=== PATIENT | female | born 1980 | race Asian ===

== ENCOUNTER 2023-06-30 11:34 | Emergency (ER) | payer OTHER ==
[~2023-06-30] VITALS: Ht 170.2 cm; Wt 99.8 kg
[2023-06-30] MEDS ORDERED: PRAM0.5T3 PO (11:51)
[2023-06-30] MEDS ORDERED: MECL-160 PO (11:51)
[2023-06-30] MEDS ORDERED: METH-364 PO (11:51)
[2023-06-30] MEDS ORDERED: DICL25TA8 PO (11:51)
[2023-06-30] MEDS ORDERED: FENT1PAT10 TP (11:51)
[2023-06-30] MEDS ORDERED: FAMO20TA8 PO (11:51)
[2023-06-30] MEDS ORDERED: CYM30 PO (11:51)
[2023-06-30] MEDS ORDERED: GABA-333 PO (11:51)
[2023-06-30 11:55] VITALS: BP_SYST 153; PULSE 103; RESP 18; TEMP 97.8; O2SAT 96
[2023-06-30] MEDS ORDERED: fentaNYL 75 MCG/HR PATCH TD ONE (12:00)
[2023-06-30] MEDS ORDERED: fentaNYL CITRATE/PF 100 MCG/2 ML AMP IM ONE (12:15)
[2023-06-30 13:27] VITALS: BP_SYST 148; PULSE 96; RESP 18; TEMP 97.4; O2SAT 98
== END 2023-06-30 13:00 | disposition home or self-care (01) ==
LOC: SED 11:34
DX: G89.29 Other chronic pain (principal); M54.50 Low back pain, unspecified; M54.2 Cervicalgia; Z88.0 Allergy status to penicillin; Z88.1 Allergy status to other antibiotic agents; Z88.5 Allergy status to narcotic agent; Z88.6 Allergy status to analgesic agent; Z79.899 Other long term (current) drug therapy
CPT/HCPCS: 99283; 96372; J3010

== ENCOUNTER 2023-07-10 16:59 | Emergency (ER) | payer OTHER ==
[~2023-07-10] VITALS: Ht 170.2 cm; Wt 99.8 kg
[~2023-07-10 16:59] MED LIST: CYM30 PO; DICL25TA8 PO; FAMO20TA8 PO; FENT1PAT10 TP; GABA-333 PO; MECL-160 PO; METH-364 PO; PRAM0.5T3 PO
[2023-07-10 17:18] VITALS: BP_SYST 141; PULSE 95; RESP 19; TEMP 97.4; O2SAT 98
[2023-07-10] MEDS ORDERED: KETOROLAC TROMETHAMINE 60 MG/2 ML VIAL IM ONE (18:45)
[2023-07-10] MEDS ORDERED: HYDROmorphone 1 MG/ML INJ. CARTRIDGE IM ONE (18:45)
[2023-07-10 19:25] VITALS: BP_SYST 160
== END 2023-07-10 19:25 | disposition home or self-care (01) ==
LOC: SED 16:59
DX: G89.29 Other chronic pain (principal); M54.50 Low back pain, unspecified; Z88.0 Allergy status to penicillin; Z88.1 Allergy status to other antibiotic agents; Z88.5 Allergy status to narcotic agent; Z79.899 Other long term (current) drug therapy
CPT/HCPCS: 99283; 96372; J1170

== ENCOUNTER 2023-07-12 03:00 | Emergency (ER) | payer OTHER ==
[~2023-07-12] VITALS: Ht 170.2 cm; Wt 99.8 kg
[2023-07-12 03:10] VITALS: BP_SYST 168; PULSE 95; RESP 16; TEMP 97.9; O2SAT 97
[2023-07-12] MEDS ORDERED: KETOROLAC TROMETHAMINE 60 MG/2 ML VIAL IM ONE (04:45)
[2023-07-12 05:00] VITALS: BP_SYST 167; PULSE 81; RESP 16; TEMP 97.9; O2SAT 97
== END 2023-07-12 05:00 | disposition home or self-care (01) ==
LOC: SED 03:00
DX: G89.29 Other chronic pain (principal); M54.50 Low back pain, unspecified; M54.2 Cervicalgia; Z88.0 Allergy status to penicillin; Z88.1 Allergy status to other antibiotic agents; Z88.5 Allergy status to narcotic agent; Z88.6 Allergy status to analgesic agent; Z79.899 Other long term (current) drug therapy
CPT/HCPCS: 99283; 96372; J1885

== ENCOUNTER 2023-07-24 02:42 | Emergency (ER) | payer MEDICAID, OTHER ==
[~2023-07-24] VITALS: Ht 170.2 cm; Wt 99.8 kg
[~2023-07-24 02:42] MED LIST changes: -MECL-160 PO; +MECL-292 PO
[2023-07-24 02:50] VITALS: BP_SYST 170; PULSE 113; RESP 16; TEMP 97.9; O2SAT 95
[2023-07-24] MEDS ORDERED: HYDROmorphone 1 MG/ML INJ. CARTRIDGE IVP ONE (03:00)
[2023-07-24 03:55] VITALS: BP_SYST 164; PULSE 103; RESP 18; TEMP 98.9; O2SAT 98
== END 2023-07-24 03:55 | disposition home or self-care (01) ==
LOC: SED 02:42
DX: M54.50 Low back pain, unspecified (principal); Z88.0 Allergy status to penicillin; Z88.1 Allergy status to other antibiotic agents; Z88.5 Allergy status to narcotic agent; Z88.6 Allergy status to analgesic agent; Z79.899 Other long term (current) drug therapy
CPT/HCPCS: 99283; 96372; J1170

== ENCOUNTER 2023-09-09 01:26 | Emergency (ER) | payer OTHER ==
[~2023-09-09] VITALS: Ht 170.2 cm; Wt 99.8 kg
[2023-09-09 01:39] VITALS: BP_SYST 167; PULSE 104; RESP 20; TEMP 97.6; O2SAT 97
[2023-09-09] MEDS ORDERED: MORPHINE 4 MG INJ. 4 MG/ML VIAL IM ONE (01:45)
[2023-09-09 01:49] VITALS: BP_SYST 167; PULSE 100; RESP 18; TEMP 98.6; O2SAT 97
== END 2023-09-09 02:01 | disposition home or self-care (01) ==
LOC: SED 01:26
DX: G89.29 Other chronic pain (principal); M54.50 Low back pain, unspecified; M54.2 Cervicalgia; Z88.0 Allergy status to penicillin; Z88.1 Allergy status to other antibiotic agents; Z88.5 Allergy status to narcotic agent; Z88.6 Allergy status to analgesic agent; Z79.899 Other long term (current) drug therapy
CPT/HCPCS: 99283; 96372; J2270

== ENCOUNTER 2023-09-14 04:28 | Emergency (ER) | payer OTHER ==
[~2023-09-14] VITALS: Ht 170.2 cm; Wt 99.8 kg
[2023-09-14 04:30] VITALS: BP_SYST 151; PULSE 96; RESP 19; TEMP 97.9; O2SAT 98
[2023-09-14] MEDS ORDERED: MORPHINE 4 MG INJ. 4 MG/ML VIAL IM ONE (05:30)
[2023-09-14 05:36] VITALS: BP_SYST 135; PULSE 93; RESP 18; TEMP 98; O2SAT 98
== END 2023-09-14 05:36 | disposition home or self-care (01) ==
LOC: SED 04:28
DX: M54.2 Cervicalgia (principal); M54.50 Low back pain, unspecified; Z79.899 Other long term (current) drug therapy; Z88.0 Allergy status to penicillin; Z88.1 Allergy status to other antibiotic agents; Z88.5 Allergy status to narcotic agent; Z88.6 Allergy status to analgesic agent
CPT/HCPCS: 99283; 96372; J2270

== ENCOUNTER 2023-09-17 00:07 | Emergency (ER) | payer OTHER ==
[~2023-09-17] VITALS: Ht 170.2 cm; Wt 99.8 kg
[2023-09-17 00:20] VITALS: BP_SYST 152; PULSE 100; RESP 18; TEMP 97.9; O2SAT 95
[2023-09-17] MEDS ORDERED: MORPHINE 4 MG INJ. 4 MG/ML VIAL IM ONE (00:30)
[2023-09-17 01:15] VITALS: BP_SYST 152; PULSE 100; RESP 18; TEMP 97.9; O2SAT 95
== END 2023-09-17 01:36 | disposition home or self-care (01) ==
LOC: SED 00:07
DX: G89.29 Other chronic pain (principal); M54.50 Low back pain, unspecified; M54.2 Cervicalgia; Z88.0 Allergy status to penicillin; Z88.1 Allergy status to other antibiotic agents; Z88.5 Allergy status to narcotic agent; Z88.6 Allergy status to analgesic agent; Z79.899 Other long term (current) drug therapy
CPT/HCPCS: 99283; 96372; J2270

== ENCOUNTER 2023-09-17 23:45 | Emergency (ER) | payer OTHER ==
[~2023-09-17] VITALS: Ht 170.2 cm; Wt 99.8 kg
[2023-09-17 23:50] VITALS: BP_SYST 167; PULSE 90; RESP 18; TEMP 97.7; O2SAT 97
[2023-09-18 02:40] VITALS: BP_SYST 134; PULSE 84; RESP 18; TEMP 98.3; O2SAT 97
[2023-09-18] MEDS ORDERED: MORPHINE 4 MG INJ. 4 MG/ML VIAL IM ONE (02:45)
[2023-09-18] MEDS ORDERED: ONDANSETRON 4 MG ODT TAB PO ONE (02:45)
== END 2023-09-18 03:17 | disposition home or self-care (01) ==
LOC: SED 23:45
DX: G89.29 Other chronic pain (principal); M54.50 Low back pain, unspecified; M54.2 Cervicalgia; I10 Essential (primary) hypertension; Z88.0 Allergy status to penicillin; Z88.1 Allergy status to other antibiotic agents; Z88.5 Allergy status to narcotic agent; Z88.6 Allergy status to analgesic agent; Z79.899 Other long term (current) drug therapy
CPT/HCPCS: 99283; 96372; Q0162; J2270

== ENCOUNTER 2023-09-20 02:06 | Emergency (ER) | payer OTHER ==
[~2023-09-20] VITALS: Ht 170.2 cm; Wt 99.8 kg
[2023-09-20 02:36] VITALS: BP_SYST 172; PULSE 92; RESP 20; TEMP 97; O2SAT 95
[2023-09-20] MEDS ORDERED: KETOROLAC TROMETHAMINE 60 MG/2 ML VIAL IM ONE (03:00)
[2023-09-20] MEDS ORDERED: MORPHINE 4 MG INJ. 4 MG/ML VIAL IVP ONE (03:00)
[2023-09-20 03:41] VITALS: BP_SYST 158; PULSE 97; RESP 20; TEMP 97.9; O2SAT 97
== END 2023-09-20 03:41 | disposition home or self-care (01) ==
LOC: SED 02:06
DX: G89.29 Other chronic pain (principal); M54.50 Low back pain, unspecified; Z88.0 Allergy status to penicillin; Z88.1 Allergy status to other antibiotic agents; Z88.5 Allergy status to narcotic agent; Z88.6 Allergy status to analgesic agent; Z79.899 Other long term (current) drug therapy
CPT/HCPCS: 99284; 96372; J1885; J2270

== ENCOUNTER 2023-11-10 22:07 | Emergency (ER) | payer MEDICAID, OTHER ==
[~2023-11-10] VITALS: Ht 170.2 cm; Wt 99.8 kg
[2023-11-10 22:13] VITALS: PULSE 109; RESP 20; TEMP 98; O2SAT 97
[2023-11-10 22:51] LABS: BASOPHILS # (AUTO) 0.1 K/uL (0.0-0.2); BASOPHILS % (AUTO) 0.5 % (0.0-2.0); EOSINOPHILS # (AUTO) 0.2 K/uL (0.0-0.4); EOSINOPHILS % (AUTO) 1.6 % (0.0-4.0); HEMATOCRIT 38.9 % (36-48); HEMOGLOBIN 13.1 g/dL (12.0-16.0); LYMPHOCYTES % (AUTO) 17.9 % (20.5-51.5); MEAN CORPUSCULAR HEMOGLOBIN 29 pg (27-31); MEAN CORPUSCULAR HGB CONC 34 % (32-36); MEAN CORPUSCULAR VOLUME 85 fL (79.0-98.0); MONOCYTES # (AUTO) 0.7 K/uL (0.0-1.0); MONOCYTES % (AUTO) 6.3 % (1.7-9.3); NEUTROPHILS # (AUTO) 8.3 K/uL (1.8-7.7); NEUTROPHILS % (AUTO) 73.7 % (40.0-70.0); PLATELET COUNT (AUTO) 325 K/uL (130-430); RED BLOOD CELL COUNT(AUTO) 4.57 MIL/uL (4.2-6.2); RED CELL DISTRIBUTION WIDTH 14.6 % (9.0-15.0); WHITE BLOOD COUNT (AUTO) 11.3 K/uL (4.8-10.8)
[2023-11-10 23:23] LABS: ANION GAP 10 (5-15); CARBON DIOXIDE 25 mmol/L (23-29); CHLORIDE 105 mmol/L (98-107); CREATININE 0.88 mg/dL (0.55-1.30); GFR AFRICAN AMERICAN 91 mL/min (>90); GLUCOSE 140 mg/dL (74-106); POTASSIUM 3.4 mmol/L (3.5-5.1); SODIUM SERUM 140 mmol/L (136-145); UREA NITROGEN, BLOOD 11 mg/dL (8-21)
[2023-11-10 23:25] LABS: GFR NON AFRICAN-AMERICAN 75 mL/min (>90)
[2023-11-11 00:16] LABS: INFLUENZA TYPE A Negative (NEGATIVE); INFLUENZA TYPE B NEGATIVE (NEGATIVE)
[2023-11-11] MEDS ORDERED: AZITHROMYCIN 250 MG TABLET PO ONE (00:30)
[2023-11-11] MEDS ORDERED: ZIT250 PO (00:34)
[2023-11-11] MEDS ORDERED: PRED20TA PO (00:34)
[2023-11-11 00:45] VITALS: BP_SYST 155; PULSE 105; RESP 20; TEMP 97.6; O2SAT 96
== END 2023-11-11 00:43 | disposition home or self-care (01) ==
LOC: SED 22:07
DX: J45.909 Unspecified asthma, uncomplicated (principal); R06.02 Shortness of breath; R05.9 Cough, unspecified; R07.9 Chest pain, unspecified; Z88.0 Allergy status to penicillin; Z88.1 Allergy status to other antibiotic agents; Z88.2 Allergy status to sulfonamides; Z88.5 Allergy status to narcotic agent; Z79.899 Other long term (current) drug therapy; Z20.822 Contact with and (suspected) exposure to COVID-19
CPT/HCPCS: 99285; 71045; 87426; 80048; 85025; 84484; 36415; 93005; 87804 ×2; Q0144

== ENCOUNTER 2023-11-13 00:21 | Emergency (ER) | payer MEDICAID, OTHER ==
[~2023-11-13] VITALS: Ht 170.2 cm; Wt 99.8 kg
[~2023-11-13 00:21] MED LIST changes: +PRED20TA PO; +ZIT250 PO
[2023-11-13 00:35] VITALS: BP_SYST 183; PULSE 106; RESP 17; TEMP 97.8; O2SAT 99
[2023-11-13] MEDS ORDERED: IPRATROPIUM/ALBUTEROL SULFATE 3 ML AMPUL.NEB (DUONEB) INH ONE (00:45)
[2023-11-13 00:55] VITALS: O2SAT 99
[2023-11-13] MEDS ORDERED: CEFU250T85 PO (01:12)
[2023-11-13] MEDS ORDERED: ALBMDI INH (01:13)
== END 2023-11-13 01:22 | disposition home or self-care (01) ==
LOC: SED 00:21
DX: J45.909 Unspecified asthma, uncomplicated (principal); R06.02 Shortness of breath; Z88.0 Allergy status to penicillin; Z88.1 Allergy status to other antibiotic agents; Z88.2 Allergy status to sulfonamides; Z88.5 Allergy status to narcotic agent; Z79.899 Other long term (current) drug therapy
CPT/HCPCS: 94640; 99283

== ENCOUNTER 2023-12-02 14:59 | Emergency (ER) | payer OTHER ==
[~2023-12-02] VITALS: Ht 170.2 cm; Wt 99.8 kg
[~2023-12-02 14:59] MED LIST changes: +ALBMDI INH; +CEFU250T85 PO
[2023-12-02 15:16] VITALS: BP_SYST 141; PULSE 109; RESP 19; TEMP 98.3; O2SAT 98
[2023-12-02 16:11] LABS: COVID19 ANTIGEN SOFIA FIA NEGATIVE (NEGATIVE)
[2023-12-02 16:12] LABS: INFLUENZA TYPE A Negative (NEGATIVE); INFLUENZA TYPE B NEGATIVE (NEGATIVE)
[2023-12-02 16:22] LABS: BASOPHILS % (AUTO) 0.4 % (0.0-2.0); EOSINOPHILS # (AUTO) 0.1 K/uL (0.0-0.4); HEMATOCRIT 38.4 % (36-48); HEMOGLOBIN 12.9 g/dL (12.0-16.0); LYMPHOCYTES # (AUTO) 0.7 K/uL (1.0-5.5); LYMPHOCYTES % (AUTO) 5.7 % (20.5-51.5); MEAN CORPUSCULAR HEMOGLOBIN 28 pg (27-31); MEAN CORPUSCULAR HGB CONC 34 % (32-36); MEAN CORPUSCULAR VOLUME 84 fL (79.0-98.0); MONOCYTES # (AUTO) 0.5 K/uL (0.0-1.0); MONOCYTES % (AUTO) 4.5 % (1.7-9.3); NEUTROPHILS # (AUTO) 10.1 K/uL (1.8-7.7); NEUTROPHILS % (AUTO) 88.4 % (40.0-70.0); PLATELET COUNT (AUTO) 374 K/uL (130-430); RED BLOOD CELL COUNT(AUTO) 4.55 MIL/uL (4.2-6.2); RED CELL DISTRIBUTION WIDTH 14.7 % (9.0-15.0); WHITE BLOOD COUNT (AUTO) 11.5 K/uL (4.8-10.8)
[2023-12-02 16:31] LABS: CALCIUM 8.7 mg/dL (8.4-11.0); CREATININE 0.88 mg/dL (0.55-1.30); POTASSIUM 3.7 mmol/L (3.5-5.1)
[2023-12-02] MEDS ORDERED: ALBUTEROL SULFATE 0.083% 2.5 MG/3 ML VIAL.NEB INH ONE (16:45)
[2023-12-02] MEDS ORDERED: IPRATROPIUM BROM 0.5 MG/2.5 ML VIAL.NEB (ATROVENT) INH ONE (16:45)
[2023-12-02] MEDS ORDERED: KETOROLAC TROMETHAMINE 30 MG VIAL IM ONE (17:30)
[2023-12-02] MEDS ORDERED: LEVO750T64 PO (18:04)
[2023-12-02] MEDS ORDERED: BENZ100C92 PO (18:06)
[2023-12-02] MEDS ORDERED: levoFLOXacin 500 MG TABLET PO ONE (18:15)
[2023-12-02 18:30] VITALS: BP_SYST 119; PULSE 82; RESP 18; TEMP 98.3; O2SAT 98
== END 2023-12-02 18:30 | disposition home or self-care (01) ==
LOC: SED 14:59
DX: J18.1 Lobar pneumonia, unspecified organism (principal); R05.9 Cough, unspecified; M54.50 Low back pain, unspecified; Z88.0 Allergy status to penicillin; Z88.1 Allergy status to other antibiotic agents; Z88.5 Allergy status to narcotic agent; Z88.6 Allergy status to analgesic agent; Z79.899 Other long term (current) drug therapy; Z20.822 Contact with and (suspected) exposure to COVID-19
CPT/HCPCS: 99285; 71045; 87426; 80048; 85025; 84484; 36415; 93005; 94640; 94760; 96372; 87804 ×2; J1885

== ENCOUNTER 2023-12-13 23:47 | Emergency (ER) | payer OTHER ==
[~2023-12-13] VITALS: Ht 170.2 cm; Wt 99.8 kg
[2023-12-13 23:47] VITALS: BP_SYST 141; PULSE 91; RESP 18; TEMP 97.2; O2SAT 97
[~2023-12-13 23:47] MED LIST changes: +BENZ100C92 PO; +LEVO750T64 PO
[2023-12-14] MEDS ORDERED: KETOROLAC TROMETHAMINE 15 MG VIAL IM ONE (00:30)
[2023-12-14] MEDS ORDERED: LIDOCAINE PATCH 5% 1 EA TP ONE (00:40)
[2023-12-14 01:07] LABS: BASOPHILS # (AUTO) 0.1 K/uL (0.0-0.2); BASOPHILS % (AUTO) 0.8 % (0.0-2.0); EOSINOPHILS # (AUTO) 0.1 K/uL (0.0-0.4); EOSINOPHILS % (AUTO) 1.2 % (0.0-4.0); HEMATOCRIT 39.5 % (36-48); HEMOGLOBIN 13.2 g/dL (12.0-16.0); LYMPHOCYTES # (AUTO) 3.3 K/uL (1.0-5.5); LYMPHOCYTES % (AUTO) 26.6 % (20.5-51.5); MEAN CORPUSCULAR HEMOGLOBIN 27 pg (27-31); MEAN CORPUSCULAR HGB CONC 33 % (32-36); MEAN CORPUSCULAR VOLUME 83 fL (79.0-98.0); MONOCYTES # (AUTO) 0.9 K/uL (0.0-1.0); MONOCYTES % (AUTO) 7.1 % (1.7-9.3); NEUTROPHILS # (AUTO) 8.1 K/uL (1.8-7.7); NEUTROPHILS % (AUTO) 64.3 % (40.0-70.0); PLATELET COUNT (AUTO) 401 K/uL (130-430); RED BLOOD CELL COUNT(AUTO) 4.79 MIL/uL (4.2-6.2); RED CELL DISTRIBUTION WIDTH 14.1 % (9.0-15.0); WHITE BLOOD COUNT (AUTO) 12.6 K/uL (4.8-10.8)
[2023-12-14 01:23] LABS: ALANINE AMINOTRANSFERASE 28 U/L (12-78); ALBUMIN 3.1 g/dL (3.4-4.8); ANION GAP 9 (5-15); ASPARTATE AMINOTRANSFERASE 32 U/L (10-37); BILIRUBIN,DIRECT 0.1 mg/dL (0.0-0.3); CALCIUM 8.1 mg/dL (8.4-11.0); CARBON DIOXIDE 28 mmol/L (23-29); CHLORIDE 107 mmol/L (98-107); CREATININE 0.82 mg/dL (0.55-1.30); GFR AFRICAN AMERICAN 99 mL/min (>90); GLUCOSE 93 mg/dL (74-106); POTASSIUM 3.3 mmol/L (3.5-5.1); SODIUM SERUM 144 mmol/L (136-145); TOTAL BILIRUBIN 0.4 mg/dL (0.0-1.0); TOTAL PROTEIN, SERUM 7.6 g/dL (6.4-8.3); UREA NITROGEN, BLOOD 14 mg/dL (8-21)
[2023-12-14 01:24] LABS: SERUM HCG (QUALITATIVE) NEGATIVE (NEGATIVE)
[2023-12-14 01:26] LABS: GFR NON AFRICAN-AMERICAN 82 mL/min (>90)
[2023-12-14] MEDS ORDERED: methocarbamoL 500 MG TABLET PO ONE (02:00)
[2023-12-14] MEDS ORDERED: PRED20TA PO (02:01)
[2023-12-14] MEDS ORDERED: LOPE2CAP PO (02:02)
[2023-12-14 04:18] VITALS: BP_SYST 132; PULSE 86; RESP 16; TEMP 97.2; O2SAT 98
== END 2023-12-14 04:18 | disposition home or self-care (01) ==
LOC: SED 23:47
DX: R07.89 Other chest pain (principal); R05.9 Cough, unspecified; Z88.0 Allergy status to penicillin; Z88.1 Allergy status to other antibiotic agents; Z88.5 Allergy status to narcotic agent; Z88.6 Allergy status to analgesic agent; Z79.899 Other long term (current) drug therapy
CPT/HCPCS: 99285; 80076; 80048; 84703; 85025; 84484; 36415; 81025; 71046; 93005; 96372; J1885

== ENCOUNTER 2024-01-11 00:30 | Emergency (ER) | payer OTHER ==
[~2024-01-11] VITALS: Ht 170.2 cm; Wt 99.8 kg
[~2024-01-11 00:30] MED LIST changes: +LOPE2CAP PO
[2024-01-11 00:38] VITALS: BP_SYST 151; PULSE 97; RESP 20; TEMP 98.9; O2SAT 98
[2024-01-11 01:29] LABS: BASOPHILS % (AUTO) 0.4 % (0.0-2.0); EOSINOPHILS # (AUTO) 0.2 K/uL (0.0-0.4); EOSINOPHILS % (AUTO) 1.9 % (0.0-4.0); HEMATOCRIT 37.9 % (36-48); HEMOGLOBIN 12.6 g/dL (12.0-16.0); LYMPHOCYTES # (AUTO) 2.6 K/uL (1.0-5.5); MEAN CORPUSCULAR HEMOGLOBIN 28 pg (27-31); MEAN CORPUSCULAR HGB CONC 33 % (32-36); MEAN CORPUSCULAR VOLUME 83 fL (79.0-98.0); MONOCYTES # (AUTO) 0.6 K/uL (0.0-1.0); MONOCYTES % (AUTO) 5.7 % (1.7-9.3); NEUTROPHILS # (AUTO) 7.4 K/uL (1.8-7.7); PLATELET COUNT (AUTO) 375 K/uL (130-430); RED BLOOD CELL COUNT(AUTO) 4.58 MIL/uL (4.2-6.2); RED CELL DISTRIBUTION WIDTH 14.3 % (9.0-15.0); WHITE BLOOD COUNT (AUTO) 10.9 K/uL (4.8-10.8)
[2024-01-11 01:45] LABS: CALCIUM 8.5 mg/dL (8.4-11.0); CREATININE 0.88 mg/dL (0.55-1.30); POTASSIUM 3.2 mmol/L (3.5-5.1)
[2024-01-11] MEDS: CYCLOBENZAPRINE HCL 10 MG TABLET (FLEXERIL) PO ONE (01:47)
[2024-01-11] MEDS: KETOROLAC TROMETHAMINE 30 MG VIAL IM ONE (01:47)
[2024-01-11] MEDS: LIDOCAINE TOPICAL OINT 5%, 35 GM TP ONE (01:48)
[2024-01-11] MEDS ORDERED: LIDOCAINE PATCH 5% 1 EA TP ONE (01:49)
[2024-01-11] MEDS: ONDANSETRON HCL 4 MG/2 ML VIAL IVP ONE (02:15)
[2024-01-11] MEDS: MORPHINE 4 MG INJ. 4 MG/ML VIAL IVP ONE (02:15)
[2024-01-11] MEDS: POTASSIUM CHLORIDE 20 MEQ/PKT PACKET PO ONE (04:02)
[2024-01-11] MEDS ORDERED: TRAM50TA2 PO (04:14)
[2024-01-11] MEDS ORDERED: CYCL10TA24 PO (04:14)
[2024-01-11] MEDS ORDERED: NAPR-688 PO (04:14)
[2024-01-11] MEDS ORDERED: [UNRECOGNIZED DRUG - CODE] TD (04:14)
[2024-01-11 05:19] VITALS: BP_SYST 127; PULSE 84; RESP 20; TEMP 97.3; O2SAT 97
== END 2024-01-11 05:22 | disposition home or self-care (01) ==
LOC: SED 00:30
DX: S22.41XA Multiple fractures of ribs, right side, initial encounter for closed fracture (principal); J90 Pleural effusion, not elsewhere classified; I10 Essential (primary) hypertension; E87.6 Hypokalemia; Z88.0 Allergy status to penicillin; Z88.1 Allergy status to other antibiotic agents; Z88.5 Allergy status to narcotic agent; Z88.6 Allergy status to analgesic agent; Z79.899 Other long term (current) drug therapy; X58.XXXA Exposure to other specified factors, initial encounter; Y93.89 Activity, other specified; Y92.89 Other specified places as the place of occurrence of the external cause; Y99.8 Other external cause status
CPT/HCPCS: 99285; 71260; 80048; 85025; 87040; 36415; 71100; 76376; 96372; 83605; J1885; Q9967